=== PATIENT | male | born 1985 | race Caucasian/White ===

== ENCOUNTER 2025-04-20 04:54 | Emergency (ER) | payer OTHER, BC, SELFPAY ==
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
--- NOTE | ~2025-04-20 | CT_ITS ---
Noncontrast CT scan of the cervical spine Technique: Multiple contiguous axial [address] images of the cervical spine were obtained and rec onstructed in 2D sagittal and coronal planes on the acquisition scanner. Dose reduction technique was used on this scan by utilizing automated exposure control, adjustment of the mA and/or kV according to patient size. The dose-length product (DLP) was 397.69 mGy-cm. Clinical History: Pain Findings: No fractures or dislocations. There is reversal of the normal cervical lordosis. There is advanced degenerative spurring at C5-C6 and C6-C7. Probable minimal right neural foraminal narrowing at C5-C6. Probable minimal left neural foraminal narrowing at C6-C7. No prevertebral soft tissue swel ling. Impression: No fracture or subluxation of the cervical spine. Mild degenerative change, as above. Reviewed, dictated and finalized at [facility]. Impression: No fracture or subluxation of the cervical spine. Mild degenerative change, as above.
[2025-04-20 04:50] VITALS: BP 128/87; PULSE 95; RESP 20; TEMP 36.5; O2SAT 96
[2025-04-20 05:01] VITALS: BP 128/87; PULSE 94; RESP 20; O2SAT 97
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
--- OUTSIDE RECORDS SUMMARY | 2025-04-20 06:03 | XMS_ITS | Patient Health Record ---
Author Organization [facility] [employer] [facility] Address [address] [place] [address] Care Team Providers Care Credit Advisor Name Role Phone Garrett Garcia Unavailable [phone] RocaelGregorio guevara Unavailable [phone] Stone, Ra Unavailable [phone] Allergies No Known Allergies Results Component Value Reference Range Notes UDT Reviewed date:06/15/2024 08:08:32 PM Interpretation: Performing Lab: Notes/Report: THC pos 0 - 50 ng/ml Cocaine neg 0 - 300 ng/ml Amphetamine neg 0 - 1000 ng/ml Buprenorphine (BUP) neg 0 - 10 ng/ml Secobarbital (Bar) neg 0 - 300 ng/ml Oxazepam (BZO) neg 0 - 300 ng/ml 1-ycqtdyezru-8,7-dhblbsec-1,3-diphenylpyrrolidine (MJ P) neg 0 - 300 ng/ml Methamphetamine (MET) neg 0 - 1000 ng/ml Methylenedioxymethamphetamine (MDMA) neg 0 - 500 ng/ml Morphine (MOP 300/[id number]) neg 0 - 300 ng/ml Methadone (MTD) neg 0 - 300 ng/ml Phencyclidine (PCP) neg 0 - 25 ng/ml Nortriptyline (TCA) neg 0 - 1000 ng/ml Oxycodone neg 0 - 300 ng/ml x neg 0 - 300 ng/ml Reason For Referral No Information Medications Medication SIG (Take, Route, Fr equency, Duration) Notes Start Date End Date Status busPIRone HCl 15 MG 1 tablet Oral Twice a day for 30 days Active DULoxetine HCl 60 MG Take 1 capsule by m outh once daily for 30 Active Social History Tobacco Use: Social History Observation Description Date Details (start date - stop date) Former Smoker NA - 03/11/2024 Sex Assigned At : Social History Observation Description Sex Assigned At Male Tobacco Control (Standard) Question Answer Notes Tobacco use: Former smoker When did you stop smoking? 03/11/2024 How long has it been since you last smoked? 1-5 years AUDIT-C (Standard) Question Answer Notes Interpretation Positive Did you have a drink contain ing alcohol in the past year? Yes How often did you have six o r more drinks on one occasion in the past year? Less than monthly (1 point) How many drinks did you have on a typical day when you were drinking in the past year? 3 or 4 drinks (1 point) How often did you have a dri nk containing alcohol in the past year? 2 to 4 times a month (2 points) Problems Problem Type SNOMED Code ICD Code Onset Dates Problem Status W/U Status Risk Notes Problem [id number] Major depressive disorder, recurrent, mild (F33.0) Active confirmed Vital Signs Heart Rate 69 /min 08/03/2024 Height-cm 177.8 cm 08/03/2024 Blood pressure diastolic 84 mm Hg 08/03/2024 Weight-kg 80.47 kg 08/03/2024 Height 70 in 08/03/2024 Blood pressure systolic 143 mm Hg 08/03/2024 Weight 177.4 lbs 08/03/2024 BMI 25.45 kg/m2 08/03/2024 Procedures Procedure Date Ordered Date Performed Result Body Sit e ADHD Testing 04/28/2024 N/A Encounters Encounter Location Date Provider Diagnosis [facility] [employer] [facility] [address] [address] [facility] [address] [place] [address] 04/28/2024 Ra Stone Anxiety, generalized F41.1 ; Impaired concentration R41.840 and Moderate recurrent major depression F33.1 [facility] [employer] [facility] [address] [facility] [address] [place] [address] 05/18/2024 Ra Chestera [facility] [employer] [place] [id number] [facility] [address] [facility] [address] [place] [address] 06/15/2024 Gregorio Cote [facility] [employer] [place] [id number] [facility] [address] [facility] [address] [place] [address] 07/02/2024 Ra Stone Anxiety, generalized F41.1 ; ADHD (attention deficit hyperactivity disorder), combined type F90.2 and Major depressive disorder, recurrent, mild F33.0 [facility] [employer] [facility] [address] [place] [address] 08/03/2024 Ra Stone Anxiety, generalized F41.1 ; ADHD (attention deficit hyperactivity disorder), combined type F90.2 and Major depressive disorder, recurrent, mild F33.0 Assessments Encounter Date Diagnosis (ICD Code) Assessment Notes Treatment Notes Treatment Clinical Notes Section Notes 08/03/2024 Anxiety, generalized (ICD-10 - F41.1) cont buspirone 15mg bid, Generalized Anxiety Disorder: Care Instructions material was published, Generalized Anxiety Disorder: Care Instructions material was published 1. ADHD: - The patient reports some improvement in focus but is experiencing significant side effects from atomoxetine, including excessive sweating and sexual side effects. Plan: - Discontinue atomoxetine - Start Qelbree 200mg daily (provide samples for the patient to try) - Follow up in one month to assess response and side effects 2. Depression: - The patient reports some improvement in mood but is unsure if it is due to the current medications. Plan: - Continue duloxetine 60mg daily - Monitor for changes in mood and side effects during the follow-up visit 3. Anxiety: - No significant changes reported by the patient. Plan: - Continue Buspirone 15mg twice a day - Reassess during the follow-up visit 4. Excessive sweating: - The patient reports increased sweating, possibly related to the combination of atomoxetine and duloxetine. Plan: - Discontinue atomoxetine (as mentioned in the ADHD plan) - Monitor for improvement in sweating after stopping atomoxetine - Reevaluate during the follow-up visit Follow-up: - Schedule a follow-up appointment in one month to assess the patient's response to the medication changes and monitor for any side effects or concerns. 07/02/2024 ADHD (attention deficit hyperactivity disorder), combined type (ICD-10 - F90.2) 1. Major Depressive Disorder: - Patient reports improvement in depression symptoms since starting duloxetine 60 mg daily. - PHQ-9 score has improved from 12 to 9. Plan: - Continue duloxetine 60 mg daily. - Monitor for any side effects and assess depression symptoms at follow-up visit in one month. 2. Generalized Anxiety Disorder: - Patient reports reduced anxiety and racing heart since starting duloxetine. - Currently on Buspar 15 mg twice a day. Plan: - Continue Buspar 15 mg twice a day. - Monitor anxiety symptoms and medication tolerance at follow-up visit in one month. 3. ADHD, Combined Presentation: - ADHD testing conducted on June 23 supports the diagnosis. - Patient uses cannabis, making stimulant medication contraindicated . Plan: - Start non-stimulant medication atomoxetine 25 mg once a day for 14 days, then increase to 50 mg. - Follow up in one month to assess response to treatment and any side effects. - Provide a copy of the ADHD report to the patient. 4. Cannabis Use: - Patient acknowledges the potential negative effects of cannabis on motivation, memory, and executive functioning. Plan: - Encourage the patient to monitor their cannabis use and consider potential impact on mental health and ADHD symptoms. - Reevaluate treatment options if necessary at follow-up visit in one month. 07/02/2024 Anxiety, generalized (ICD-10 - F41.1) cont buspirone 15mg bid, Generalized Anxiety Disorder: Care Instructions material was published, Generalized Anxiety Disorder: Care Instructions material was published 1. Major Depressive Disorder: - Patient reports improvement in depression symptoms since starting duloxetine 60 mg daily. - PHQ-9 score has improved from 12 to 9. Plan: - Continue duloxetine 60 mg daily. - Monitor for any side effects and assess depression symptoms at follow-up visit in one month. 2. Generalized Anxiety Disorder: - Patient reports reduced anxiety and racing heart since starting duloxetine. - Currently on Buspar 15 mg twice a day. Plan: - Continue Buspar 15 mg twice a day. - Monitor anxiety symptoms and medication tolerance at follow-up visit in one month. 3. ADHD, Combined Presentation: - ADHD testing conducted on June 23 supports the diagnosis. - Patient uses cannabis, making stimulant medication contraindicated . Plan: - Start non-stimulant medication atomoxetine 25 mg once a day for 14 days, then increase to 50 mg. - Follow up in one month to assess response to treatment and any side effects. - Provide a copy of the ADHD report to the patient. 4. Cannabis Use: - Patient acknowledges the potential negative effects of cannabis on motivation, memory, and executive functioning. Plan: - Encourage the patient to monitor their cannabis use and consider potential impact on mental health and ADHD symptoms. - Reevaluate treatment options if necessary at follow-up visit in one month. 04/28/2024 Anxiety, generalized (ICD-10 - F41.1) cont buspirone 15mg bid, Generalized Anxiety Disorder: Care Instructions material was published, Generalized Anxiety Disorder: Care Instructions material was published Probable ADHD LALO MDDR will do adhd testing he has been on sertraline for about a year, continues to have depression, anxiety symptoms Recommend counseling 04/28/2024 Impaired concentration (ICD-10 - R41.840) Probable ADHD LALO MDDR will do adhd testing he has been on sertraline for about a year, continues to have depression, anxiety symptoms Recommend counseling 04/28/2024 Moderate recurrent major depression (ICD-10 - F33.1) decrease sertraline [id number] daily x 7 days then 50mg daily x 7 days then stop- use supply you have at home start Duloxetine 30mg daily x 14 days then 60mg daily recommend counseling, Learning About Depression material was published, Learning About Depression material was published Probable ADHD LALO MDDR will do adhd testing he has been on sertraline for about a year, continues to have depression, anxiety symptoms Recommend counseling 07/02/2024 Major depressive disorder, recurrent, mild (ICD-10 - F33.0) 1. Major Depressive Disorder: - Patient reports improvement in depression symptoms since starting duloxetine 60 mg daily. - PHQ-9 score has improved from 12 to 9. Plan: - Continue duloxetine 60 mg daily. - Monitor for any side effects and assess depression symptoms at follow-up visit in one month. 2. Generalized Anxiety Disorder: - Patient reports reduced anxiety and racing heart since starting duloxetine. - Currently on Buspar 15 mg twice a day. Plan: - Continue Buspar 15 mg twice a day. - Monitor anxiety symptoms and medication tolerance at follow-up visit in one month. 3. ADHD, Combined Presentation: - ADHD testing conducted on June 23 supports the diagnosis. - Patient uses cannabis, making stimulant medication contraindicated . Plan: - Start non-stimulant medication atomoxetine 25 mg once a day for 14 days, then increase to 50 mg. - Follow up in one month to assess response to treatment and any side effects. - Provide a copy of the ADHD report to the patient. 4. Cannabis Use: - Patient acknowledges the potential negative effects of cannabis on motivation, memory, and executive functioning. Plan: - Encourage the patient to monitor their cannabis use and consider potential impact on mental health and ADHD symptoms. - Reevaluate treatment options if necessary at follow-up visit in one month. 08/03/2024 ADHD (attention deficit hyperactivity disorder), combined type (ICD-10 - F90.2) Strong CY inhibitors (eg, Qelbree Oral Capsule Extended Release 24 Hour 200 MG) may increase the serum concentration of duloxetine 1. ADHD: - The patient reports some improvement in focus but is experiencing significant side effects from atomoxetine, including excessive sweating and sexual side effects. Plan: - Discontinue atomoxetine - Start Qelbree 200mg daily (provide samples for the patient to try) - Follow up in one month to assess response and side effects 2. Depression: - The patient reports some improvement in mood but is unsure if it is due to the current medications. Plan: - Continue duloxetine 60mg daily - Monitor for changes in mood and side effects during the follow-up visit 3. Anxiety: - No significant changes reported by the patient. Plan: - Continue Buspirone 15mg twice a day - Reassess during the follow-up visit 4. Excessive sweating: - The patient reports increased sweating, possibly related to the combination of atomoxetine and duloxetine. Plan: - Discontinue atomoxetine (as mentioned in the ADHD plan) - Monitor for improvement in sweating after stopping atomoxetine - Reevaluate during the follow-up visit Follow-up: - Schedule a follow-up appointment in one month to assess the patient's response to the medication changes and monitor for any side effects or concerns. 08/03/2024 Major depressive disorder, recurrent, mild (ICD-10 - F33.0) 1. ADHD: - The patient reports some improvement in focus but is experiencing significant side effects from atomoxetine, including excessive sweating and sexual side effects. Plan: - Discontinue atomoxetine - Start Qelbree 200mg daily (provide samples for the patient to try) - Follow up in one month to assess response and side effects 2. Depression: - The patient reports some improvement in mood but is unsure if it is due to the current medications. Plan: - Continue duloxetine 60mg daily - Monitor for changes in mood and side effects during the follow-up visit 3. Anxiety: - No significant changes reported by the patient. Plan: - Continue Buspirone 15mg twice a day - Reassess during the follow-up visit 4. Excessive sweating: - The patient reports increased sweating, possibly related to the combination of atomoxetine and duloxetine. Plan: - Discontinue atomoxetine (as mentioned in the ADHD plan) - Monitor for improvement in sweating after stopping atomoxetine - Reevaluate during the follow-up visit Follow-up: - Schedule a follow-up appointment in one month to assess the patient's response to the medication changes and monitor for any side effects or concerns. 04/28/2024 Other Duloxetine Delayed Release Oral Capsule 30 mg (DULOXETINE - ORAL) material was published Probable ADHD LALO MDDR will do adhd testing he has been on sertraline for about a year, continues to have depression, anxiety symptoms Recommend counseling Plan Of Treatment Pending Test Test Name Order Date ADHD Testing 04/28/2024 Future Test Test Name Order Date ADHD Testing 04/28/2024 Insurance Providers Payer Name Payer Address Payer Phone Subscriber Number Group Number Insured Name Patient Relationship to Insured Coverage Start Date Coverage End Date [facility] Ppo [address] [place] [address] [id number] OTONIEL ALVES Self - patient is the insured Medical (General) History Medical History History ICD Code Past Psychiatric History: An xiety Disorder,Panic Disorder,PTSD,Major Depressive Episode abdominal aortic aneurysm: No atrial fibrillation: No chronic fatigue syndrome: No essential tremor: No hyperlipidemia: No hypertension: No Parkinson's disease: No restless leg syndrome: No stroke: No subdural hematoma: No type 1 diabetes mellitus: No type 2 diabetes mellitus: No vitamin B12 deficiency: No vitamin D deficiency: No
--- OUTSIDE RECORDS SUMMARY | 2025-04-20 06:03 | XMS_ITS ---
Author Organization [facility] [employer] [facility] Address [facility] [address] Care Team Providers Care Kettle Chipper Name Role Phone Garrett Garcia Unavailable [phone] Ra Stone Unavailable [phone] REASON FOR VISIT ADHD Follow Up Social History Sex Assigned At : Social History Observation Description Sex Assigned At Male Encounters Encounter Location Date Provider Diagnosis [facility] [place] [address] [facility] [address] [place] [address] 06/23/2024 Ra Stone Plan Of Treatment No Information Progress Notes * JOSELYN OTONIELDOB:1985 (39 yo M)Acc No.[id number]:06/23/2024 Patient: OTONIEL DE LA PAZ Provider: LUIGI ENG :1985 A ge:38 Y S ex:Male Date:06/23/2024 Address:[address] Subjective: * Chief Complaints: * 1 . ADHD Follow Up. * Medical History: Objective: * Vitals: Assessment: Plan: * Treatment: * Billing Information: * Visit Code: * Procedure Codes: * Electronic signature of LUIGI Roger on 04/20/2025 at 06:02 AM CDT Sign off status: Pending * Provider: LUIGI ENG Date: 0 06/23/2024 Generated for Tavon prado/[place]/eTransmitting on: 0 04/20/2025 06:02 AM CDT
[2025-04-20 06:25] VITALS: BP 138/82; PULSE 100; RESP 18; TEMP 36.4; O2SAT 100
== END 2025-04-20 06:16 | disposition home or self-care (01) ==
LOC: ANHED 06:01
PROVIDERS: Emergency Provider Emergency Medicine; PCP Family Medicine
DX: S16.1XXA Strain of muscle, fascia and tendon at neck level, initial encounter (principal); S29.9XXA Unspecified injury of thorax, initial encounter; S39.92XA Unspecified injury of lower back, initial encounter; F41.9 Anxiety disorder, unspecified; F32.A Depression, unspecified; Z87.891 Personal history of nicotine dependence; Z79.899 Other long term (current) drug therapy; V44.5XXA Car driver injured in collision with heavy transport vehicle or bus in traffic accident, initial encounter
CPT/HCPCS: 70450; 72125; 72128; 72131; 99284; L0140